=== PATIENT | male | born 1980 | race Caucasian/White ===

== ENCOUNTER 2024-10-23 20:05 | Emergency (ER) | payer MEDICAID | END 2024-10-23 21:09 | disposition home or self-care (01) | LOC: JP.ED 20:05 | DX: R59.0 Localized enlarged lymph nodes (principal); Z88.0 Allergy status to penicillin | CPT/HCPCS: 99283 ==

== ENCOUNTER 2025-02-22 04:55 | Emergency (ER) | payer MEDICAID ==
[2025-02-22 05:35] LABS: BASOPHILS ABSOLUTE AUTO 0.06 K/uL (0.00-0.10); BASOPHILS PERCENT AUTO 0.6 % (0.1-1.3); EOSINOPHILS ABSOLUTE AUTO 0.26 K/uL (0.00-0.40); EOSINOPHILS PERCENT AUTO 2.8 % (0.0-5.4); HEMATOCRIT 46.6 % (38.4-49.7); HEMOGLOBIN 15.9 g/dL (12.9-16.9); IMMATURE GRAN ABSOLUTE AUTO 0.05 K/uL (0.00-0.23); IMMATURE GRAN PERCENT AUTO 0.5 % (0.0-0.7); LYMPHOCYTES ABSOLUTE AUTO 1.09 K/uL (0.8-3.3); LYMPHOCYTES PERCENT AUTO 11.7 % (11.4-47.7); MEAN CORPUSCULAR HEMOGLOBIN 29.7 pg (31.6-35.5); MEAN CORPUSCULAR HGB CONC 34.1 g/dL (31.6-35.5); MEAN CORPUSCULAR VOLUME 87.1 fL (81.4-99.0); MONOCYTES ABSOLUTE AUTO 0.72 K/uL (0.20-0.90); MONOCYTES PERCENT AUTO 7.7 % (3.3-12.6); NEUTROPHILS ABSOLUTE AUTO 7.17 K/uL (1.0-7.6); NEUTROPHILS PERCENT AUTO 76.7 % (40.0-78.1); PLATELET COUNT,PLT 180 K/uL (130-375); RED BLOOD CELL COUNT 5.35 M/uL (4.14-5.76); WHITE BLOOD CELL COUNT,WBC 9.4 K/uL (3.2-11.0)
[2025-02-22] MEDS: Ondansetron 4 MG/2 ML SDV IVPUSH ONE (05:40)
[2025-02-22] MEDS: Sodium Chloride 0.9% 1,000 ML IV ONE (05:41)
[2025-02-22 05:50] LABS: ANION GAP 13.4 mmol/L (5.0-14.0); C-REACTIVE PROTEIN 1.12 mg/dL (<0.50); CALCIUM 8.7 mg/dL (8.5-10.1); EST CRCL DRUG DOSING (CG) 93.28 mL/min; POTASSIUM,K 4.4 mmol/L (3.6-5.2)
[2025-02-22 05:51] LABS: A/G RATIO 1.2 (1.2-2.2); ALBUMIN 3.9 g/dL (3.4-5.0); BILIRUBIN DIRECT 0.11 mg/dL (0.0-0.2); BILIRUBIN INDIRECT 0.69; BILIRUBIN TOTAL 0.8 mg/dL (0.2-1.0); PROTEIN TOTAL,TP 7.1 g/dL (6.4-8.2)
== END 2025-02-22 06:51 | disposition home or self-care (01) ==
LOC: JP.ED 04:55
DX: K52.9 Noninfective gastroenteritis and colitis, unspecified (principal); J45.909 Unspecified asthma, uncomplicated; Z88.0 Allergy status to penicillin; Z88.1 Allergy status to other antibiotic agents
CPT/HCPCS: 36415; 80048; 80076; 83605; 83690; 85025; 86140; 93005; 93010; 96361; 96374; 99283; 99284-25; J2405; J7030